=== PATIENT | male | born 1995 | race American Indian/Alaskan Native ===

== ENCOUNTER 2016-09-13 15:16 | Emergency (ER) | payer SELFPAY ==
[2016-09-13] MEDS ORDERED: NACL 0.9% IR ONE (15:25)
[2016-09-13] MEDS ORDERED: ceFAZolin 2 GM in NACL 0.9% 100 ML IV ONE (15:25)
[2016-09-13] MEDS ORDERED: DILAUDID IV ONE (15:25)
[2016-09-13] MEDS ORDERED: BOOSTRIX IM ONE (15:25)
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
[2016-09-13] MEDS ORDERED: NACL 0.9% 1,500 ML IR ONE (15:58)
[2016-09-13 16:06] LABS: Hematocrit 45.1 % (35.5-45.6); Mean Corpuscular HGB Conc 33 % (32-34); Mean Corpuscular Hemoglobin 33 pg (28-32); Mean Corpuscular Volume 99 fl (84-94); Platelet Count 137 K/mm3 (140-440); Red Blood Count 4.57 M/mm3 (3.65-5.03); Red Cell Distribution Width 13.6 % (13.2-15.2); White Blood Count 8.9 K/mm3 (4.5-11.0)
[2016-09-13 16:17] LABS: INR 1.17 (0.87-1.13); Partial Thromboplastin Time 26.9 Sec. (24.2-36.6)
[2016-09-13 16:27] LABS: Anion Gap 20 mmol/L; Blood Urea Nitrogen 11 mg/dL (9-20); Carbon Dioxide 24 mmol/L (22-30); Chloride 101.8 mmol/L (98-107); Creatine Kinase 123 units/L (55-170); Glucose 146 mg/dL (75-100); Potassium 3.6 mmol/L (3.6-5.0); Sodium 142 mmol/L (137-145)
[2016-09-13] MEDS ORDERED: MORPHINE IV ONE (17:59)
[2016-09-13 19:35] VITALS: BP 145/77
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
== END 2016-09-13 20:14 | disposition short-term general hospital (02) ==
LOC: ED 15:16
DX: S62.232A Other displaced fracture of base of first metacarpal bone, left hand, initial encounter for closed fracture (principal); S62.311A Displaced fracture of base of second metacarpal bone, left hand, initial encounter for closed fracture; S62.313A Displaced fracture of base of third metacarpal bone, left hand, initial encounter for closed fracture; W34.00XA Accidental discharge from unspecified firearms or gun, initial encounter; Y93.89 Activity, other specified; Y99.9 Unspecified external cause status; Y92.89 Other specified places as the place of occurrence of the external cause
CPT/HCPCS: 36415; 72170; 73120; 80048; 82550; 85027; 85610; 85730; 90471; 90715; 96361; 96374; 96375; 99284; J0690; J1170; J2270

== ENCOUNTER 2017-08-04 11:39 | Emergency (ER) | payer SELFPAY ==
[2017-08-04 12:00] VITALS: BP 130/77
[2017-08-04] MEDS ORDERED: ROCEPHIN IM ONE (13:33)
[2017-08-04] MEDS ORDERED: XYLOCAINE 1% MPF 5 mL INFILTRATI ONE (13:33)
--- NOTE | 2017-08-04 13:37 | Emergency Department Report ---
Abscess Boil HPI - HPI Chief Complaint: Skin/Abscess/Foreign Body Stated Complaint: BOIL Time Seen by Provider: 08/04/17 13:16 Duration: 2 Days Location: Other (SUPRAPUBIC) History: Yes Pain, Yes Purulent Drainage, No Fever, No Numbness, No Foreign Body , No Previous History, No Insect Bite Home Medications: Previous Rx's Medication Instructions Recorded Last Taken Type Cephalexin [Keflex] 500 mg PO Q12HR #20 cap 08/04/17 Unknown Rx traMADol [Ultram] 50 mg PO Q6HR PRN #10 tablet 08/04/17 Unknown Rx Allergies/Adverse Reactions: Allergies Allergy/AdvReac Type Severity Reaction Status Date / Time No Known Allergies Allergy Unverified 10/09/15 14:19 ED Review of Systems ROS: Stated complaint: BOIL Other details as noted in HPI Comment: All other systems reviewed and negative Skin: other (ABSCESS SUPRAPUB AREA) ED Past Medical Hx - Past Medical History Previous Medical History?: No - Surgical History Past Surgical History?: Yes Additional Surgical History: L hand surgery - Social History Smoking Status: Never Smoker Substance Use Type: None - Medications Home Medications: Home Medications Medication Instructions Recorded Confirmed Last Taken Type Cephalexin [Keflex] 500 mg PO Q12HR #20 cap 08/04/17 Unknown Rx traMADol [Ultram] 50 mg PO Q6HR PRN #10 tablet 08/04/17 Unknown Rx ED Abscess Boil Physical Exam - Exam General: Vital signs noted. No distress. Alert and acting appropriately. Front/Back of Body, Lg (Color): 1 - ABSCESS OPEN AND DRAINING Size: 3 cm Exam: Yes Tenderness, Yes Fluctuance, Yes Surrounding Cellulites/Erythema, Yes Normal Neurologic Exam, Yes Normal Circulation, No Lymphangitis, No Crepitation , No Heart Murmur ED Course Vital Signs 08/04/17 11:56 Temperature 98.7 F Pulse Rate 82 Respiratory 16 Rate Blood Pressure 130/77 O2 Sat by Pulse 97 Oximetry - Reevaluation(s) Reevaluation #1: 08/04/17 13:36 NON ILL NON TOXIC OPEN ABSCESS ON SUPRAPUBIC AREA NO FEVER AMBULATORY WOUND CLEANED DC HOME W DC POC Critical care attestation.: If time is entered above; I have spent that time in minutes in the direct care of this critically ill patient, excluding procedure time. ED Disposition Clinical Impression: Abscess Disposition: DC-01 TO HOME OR SELFCARE Is pt being admited?: No Does the pt Need Aspirin: No Condition: Stable Instructions: Abscess (ED) Additional Instructions: SOAK IN EPSOM SALTS THREE TIMES PER DAY FOR 20 MINUTES MEDS ORDERED FOLLOW UP PCP Referrals: PRIMARY CARE, [Primary Care Provider] - 3-5 Days LYNNE BONILLA MD [Staff Physician] - 3-5 Days Time of Disposition: 13:35
== END 2017-08-04 14:16 | disposition home or self-care (01) ==
LOC: ED 11:39
DX: L02.211 Cutaneous abscess of abdominal wall (principal)
CPT/HCPCS: 96372; 99282; J0696

== ENCOUNTER 2017-10-10 14:19 | Emergency (ER) | payer OTHER ==
[2017-10-10 14:57] VITALS: BP 129/73
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
[2017-10-10] MEDS ORDERED: FLEXERIL PO ONE (21:55)
[2017-10-10] MEDS ORDERED: NORCO 5/325 PO ONE (21:55)
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
== END 2017-10-10 23:25 | disposition home or self-care (01) ==
LOC: ED 14:19
DX: M54.5 Low back pain (principal); M25.511 Pain in right shoulder; M25.512 Pain in left shoulder; V89.2XXA Person injured in unspecified motor-vehicle accident, traffic, initial encounter; Y93.89 Activity, other specified; Y92.89 Other specified places as the place of occurrence of the external cause; Y99.8 Other external cause status
CPT/HCPCS: 72100; 99283